=== PATIENT | female | born 1995 | race Caucasian/White ===

== ENCOUNTER 2024-06-24 12:37 | Emergency (ER) | payer OTHER, SELFPAY ==
[2024-06-24 12:50] VITALS: BP 130/78; PULSE 136; RESP 16; TEMP 39; O2SAT 100
[2024-06-24 13:05] VITALS: BP 130/78; PULSE 136; RESP 16; TEMP 39; O2SAT 100
[2024-06-24 13:12] VITALS: TEMP 39
[2024-06-24] MEDS: ACETAMINOPHEN 500 MG TABLET 1000 MG PO (13:12)
--- NOTE | 2024-06-24 13:16 | ED_ITS ---
HPI - URI/Sore Throat General Chief Complaint: Upper Respiratory Infection Stated Complaint: fever/throat/cough History of Present Illness HPI Narrative: patient is a 28-year-old female, without significant past medical history, presents to [facility] with approximately one-week history of URI symptoms are starting to improve until 2 days ago when she began having a sore throat. She states her tonsils are swollen she has exudate present. Her 3-year-old has similar symptoms. She denies significant cough, chest pain shortness of breath. She has no nausea vomiting or diarrhea she denies dysuria. She has not taken any antipyretic medication today. She is not . Related Data Allergies Allergy/AdvReac Type Severity Reaction Status Date / Time No Known Allergies Allergy Verified 06/24/24 13:04 Review of Systems Constitutional: Comments: refer to HPI ENT: Comments: Refer HPI Exam Const: General: healthy appearing, no acute distress and alert Nutritional Appearance: well nourished Orientation/consciousness: patient oriented x3 Limitations: no limitations HENMT: Head: normal to inspection Ears: external ears normal and TM's normal bilaterally Face and sinus: normal facial exam Throat: uvula midline Other: patient's tonsils are 3+ bilaterally, beefy erythema is noted with diffuse exudate. Uvula is midline, no trismus Eyes: Conjunctivae: conjunctivae normal Pupils: Equal, round and reactive pupils present EOM: EOMs intact bilaterally Neck: Neck: normal visual inspection, no meningeal signs and lymphadenopathy ( bilateral anterior cervical chain lymphadenopathy noted) Resp: Effort & Inspection: normal respiratory effort Auscultation: clear to auscultation bilaterally Cardio: Rate: tachycardic Rhythm: regular rhythm Skin: General skin exam: normal color Rashes: no rashes Wounds: no wounds Neuro: General: patient oriented x3, moves all extremities, no meningeal signs, no focal motor deficits and CN's II-XI intact bilaterally Cranial nerves: Yes Nystagmus not present Speech: normal speech Gait exam (Neuro): Normal gait present Extrem: General: normal to inspection Psych: Mental Status: mental status grossly normal Course Course Emergency Course: patient likely has post viral strep pharyngitis, she has declined strep screening. Will treat empirically for exudative pharyngitis, continue Tylenol ibuprofen as directed [id number] for fever reduction. High-dose amoxicillin, PCP follow-up in 3 days if symptoms not resolving distress. Patient is agreeable with plan. Level of Care: Express Care Visit ([id number]) Vital Signs Vital signs: Vital Signs Temperature 39.0 C H 06/24/24 12:50 Pulse Rate 136 H 06/24/24 12:50 Respiratory Rate 16 06/24/24 12:50 Blood Pressure 130/78 06/24/24 12:50 Pulse Oximetry 100 06/24/24 12:50 Oxygen Delivery Room Air 06/24/24 12:50 Temperature 39.0 C H 06/24/24 13:12 Pulse Rate 136 H 06/24/24 13:05 Respiratory Rate 16 06/24/24 13:05 Blood Pressure 130/78 06/24/24 13:05 Pulse Oximetry 100 06/24/24 13:05 Oxygen Delivery Room Air 06/24/24 13:05 MDM - URI/Sore Throat MDM Narrative Medical decision making narrative: Amoxicillin Differential Diagnosis Differential diagnosis: Likely upper respiratory infection, sinusitis, viral infection, pharyngitis and other ( strep) Discharge Plan Discharge Clinical Impression: Exudative pharyngitis Patient Disposition: Home, Self-Care Condition: Stable Instructions: Antibiotic Form, Pharyngitis in Children (ED) Additional Instructions: START AND COMPLETE ORAL ANTIBIOTICS PRESCRIBED. PUSH FLUIDS, ALTERNATE TYLENOL AND IBUPROFEN DIRECTED FOR FEVER REDUCTION DIRECTED [id number]. FOLLOW UP WITH YOUR PRIMARY CARE PROVIDER IN 3 DAYS IF SYMPTOMS NOT RESOLVING. REPLACE TOOTHBRUSH AFTER 48 HOURS OF ANTIBIOTICS ARE COMPLETE. Prescriptions: New amoxicillin 500 mg tablet 1,000 mg PO Q12H 10 Days Qty: 40 0RF Follow-up/Referrals: PHYSICIAN,NANNY/HOUSEHOLD MANAGER [Primary Care Provider] - Time of Disposition: 13:23
== END 2024-06-24 13:32 | disposition home or self-care (01) ==
PROVIDERS: Emergency Provider Nurse Practitioner Family
DX: J02.9 Acute pharyngitis, unspecified (principal)
CPT/HCPCS: 99203; A9270; G0463